=== PATIENT | male | born 1975 | race Caucasian/White ===

== ENCOUNTER 2020-07-30 16:48 | Emergency (ER) | payer OTHER, SELFPAY ==
--- NOTE | ~2020-07-30 | XR_ITS ---
EXAMINATION: XR ANKLE, RIGHT CLINICAL INFORMATION: Pain after fall COMPARISON: None TECHNIQUE: AP, lateral, and mortise views of the right ankle. FINDINGS: The bones and soft tissues are normal. No fracture. Alignment is anatomic. Joint spaces are maintained. No joint effusion. XR/XR ankle RT min 3V IMPRESSION: No acute osseous abnormality of the right ankle.
[2020-07-30 18:51] VITALS: PULSE 79; RESP 16; TEMP 36.8; O2SAT 97; BMI 27.8
--- NOTE | 2020-07-30 18:59 | ED.LOWEXIN ---
HPI - Extremity Injury (Lower) General Chief Complaint: Extremity Injury, Lower Stated Complaint: rt ankle pain Source: patient Mode of arrival: ambulatory Limitations: no limitations History of Present Illness HPI Narrative: 45-year-old male with no significant past medical history presents with complaint of right ankle pain. Stated that he twisted his ankle on and noted some pain and swelling, he thought that the pain would alleviate with ice and elevation however the pain persists. He is able to ambulate but ambulates with a limp. He does not describe any other did injuries and has no other complaints. MD complaint: ankle injury Onset (ago): day(s) (5) Injury: Right: ankle Type of Injury: inversion Place: street/outdoors Severity: moderate Severity scale (1-10): 5 Relieving factors: NSAID, cold therapy and rest Exacerbating factors: weight bearing, movement and palpation Associated symptoms: swelling and ambulatory Other symptoms: none Treatments prior to arrival: cold therapy and NSAIDS Related Data Allergies Allergy/AdvReac Type Severity Reaction Status Date / Time morphine Allergy Unknown Verified 05/23/15 00:00 Review of Systems Review of Systems: Constitutional: No Fever, No Chills ENT/Mouth: No Ear Pain, No Hoarseness, No sore throat Eyes: No Eye Pain, No Swelling, No Redness, No Foreign Body Cardiovascular: No Chest Pain, No SOB Respiratory: No Cough, No Dyspnea Gastrointestinal: No Nausea, No Vomiting, No Diarrhea, No abdominal Pain Genitourinary: No Dysuria, No Hematuria Musculoskeletal: positive right ankle pain, No Myalgias, No Joint Swelling Skin: No Skin lacerations, No rash Neuro: No Weakness, No Numbness, No Paresthesias, No Loss of Consciousness, No Dizziness, No Headache Psych: No Anxiety/Panic, No Depression Heme/Lymph: no easy bruising, no Lymphadenopathy Endocrine: No Polyuria, No Polydipsia Yes all other systems are reviewed and are negative [facility] Past Medical History Attestation statement: The following information was validated with the patient. Source: old records reviewed Social History Social History Smoking Status: Light tobacco smoker Smoked in Last 30 Days: No Use of substances other than those prescribed or required for medical reasons: No Any prior treatment program specific to substance use: No Advance Directives: No Advance Directives Information Provided: Yes Physical Exam Vital Signs: Vital Signs: Last Vital Signs Temp 98.2 F 07/30/20 18:51 Pulse 79 07/30/20 18:51 Resp 16 07/30/20 18:51 Pulse Ox 97 07/30/20 18:51 Body Mass Index 27.8 Appearance: Alert. Oriented X3. No acute distress. Eyes: Pupils equal, round and reactive to light. ENT: Pharynx normal. Neck: Normal inspection. Neck supple. CVS: Normal heart rate and rhythm. Pulses normal. Respiratory: No respiratory distress. Breath sounds normal. Abdomen: Soft and nontender. Skin: Skin warm and dry. Normal skin color. Normal skin turgor. Extremities: Full range of motion to extremities, able to flex extend internal external rotate however tender on motion. Tender to medial malleolar process. No bruising or swelling noted. Neuro: No motor deficit. No sensory deficit. Course Course Course Narrative: 45-year-old male presents with ankle pain after a twisting injury on . Plan of care is for x-rays. 8:09 p.m. x-rays are negative for acute findings. Plan of care is for Harvey wrap and crutches for sprain. Patient verbalized understanding of and agrees to plan of care discharge home. MDM - Extremity Injury (Lower) Differential Diagnosis Differential diagnosis: Likely ankle sprain and strain Imaging Data Right ankle x-ray: Attestation: I personally reviewed and interpreted this imaging study as follows: Radiologist's impression: EXAMINATION: XR ANKLE, RIGHT CLINICAL INFORMATION: Pain after fall COMPARISON: None TECHNIQUE: AP, lateral, and mortise views of the right ankle. FINDINGS: The bones and soft tissues are normal. No fracture. Alignment is anatomic. Joint spaces are maintained. No joint effusion. XR/XR ankle RT min 3V IMPRESSION: No acute osseous abnormality of the right ankle. Discharge Plan Discharge Clinical Impression: Ankle sprain and strain Patient Disposition: Home, Self-Care Instructions: Ankle Sprain (ED) Additional Instructions: You were evaluated for right ankle pain. X-rays are negative for acute findings or fractures. It is highly suspicious that you have an ankle sprain. Use Harvey wrap as needed for pain management and to reduce swelling. Please use Tylenol Motrin as needed for pain management. Consider following up with the primary care physician in several days if pain does not subside with rest, ice elevation Tylenol and Motrin therapy. Thank you for choosing this emergency department for evaluation. Please follow-up with primary care physician as needed. Return to the emergency department for any new, concerning, or worsening symptoms. Stand Alone Forms: Work/School Release Interventions: ED Discharge Assessment Last Done: 07/30/20 20:19 Discharge Date/Time: 07/30/20 20:20
== END 2020-07-30 20:20 | disposition home or self-care (01) ==
PROVIDERS: Emergency Provider Emergency Medicine Emergency Medical Services
DX: S93.401A Sprain of unspecified ligament of right ankle, initial encounter (principal); S96.911A Strain of unspecified muscle and tendon at ankle and foot level, right foot, initial encounter; X50.1XXA Overexertion from prolonged static or awkward postures, initial encounter; Y93.01 Activity, walking, marching and hiking; Y92.480 Sidewalk as the place of occurrence of the external cause; Y99.9 Unspecified external cause status; F17.210 Nicotine dependence, cigarettes, uncomplicated
CPT/HCPCS: 73610; 99283; 99284

== ENCOUNTER 2021-04-14 18:57 | Observation (INO) | payer OTHER, SELFPAY ==
[2021-04-14 19:01] VITALS: BP 127/83; PULSE 80; RESP 18; TEMP 36.8; O2SAT 99; BMI 27.0
--- NOTE | 2021-04-14 20:25 | ED_ITS ---
HPI - Extremity Injury (Lower) General Chief Complaint: Extremity Injury, Lower Stated Complaint: right foot swelling Time Seen by Provider: 04/14/21 20:24 Source: patient Mode of arrival: ambulatory Limitations: no limitations History of Present Illness HPI Narrative: Patient is a 45 year old male presenting to the emergency department today with right foot pain and swelling. Patient states that 2 days ago he was scratched and bit by a kitten, on the foot. Patient states initially, he thought it was getting better however, now his foot is so swollen he can not fit it into his shoes. Patient denies any dizziness, lightheadedness, abdominal pain, nausea, vomiting, fever, chills, blurry vision, double vision, loss of vision, chest pain, difficulty breathing, shortness of breath, back pain, night sweats, pain with urination, increased urinary frequency, increased urinary urgency, blood in his urine or stool, syncope or a near syncopal episode, recent trauma or falls, bowel incontinence, bladder incontinence, bowel retention, bladder retention, or any other complaints at this time. MD complaint: foot injury Onset (ago): day(s) Injury: Right: foot Type of Injury: puncture wound Place: home Severity: mild Severity scale (1-10): 4 Relieving factors: nothing Exacerbating factors: nothing Context: other (Bitten scratch by kitten) Other symptoms: none Related Data Home Medications Medication Instructions Recorded Confirmed No Known Home Meds 04/14/21 04/14/21 Allergies Allergy/AdvReac Type Severity Reaction Status Date / Time morphine Allergy Intermediate Confusion Verified 04/14/21 19:01 Review of Systems Verdana 4l Constitutional: Verdana 4d Verdana 4d Constitutional: Verdana 4d Reports no additional constitutional complaints, Denies chills, Denies fever(s) and Denies night sweats Verdana 4l Eyes: Verdana 4d Verdana 4d Eyes: Verdana 4d Reports no additional eye complaints, Denies blurry vision, Denies change in vision, Denies diplopia, Denies eye discharge, Denies loss of vision and Denies eye pain Verdana 4l ENT: Verdana 4d Denies dizziness Verdana 4l Cardiovascular: Verdana 4d Verdana 4d Cardiovascular: Verdana 4d Reports no additional cardiovascular complaints, Denies chest pain, Denies lightheadedness, Denies Loss of Consciousness and Denies dyspnea Verdana 4l Respiratory: Verdana 4d Verdana 4d Respiratory: Verdana 4d Reports no additional respiratory complaints and Denies dyspnea Verdana 4l Gastrointestinal: Verdana 4d Verdana 4d Gastrointestinal: Verdana 4d Reports no additional gastrointestinal complaints, Denies abdominal pain, Denies melena, Denies hematochezia, Denies change in bowel habits and Denies change in stool character Verdana 4l Genitourinary: Verdana 4d Verdana 4d Genitourinary: Verdana 4d Reports no additional male genitourinary complaints, Denies hematuria, Denies oliguria, Denies difficulty urinating, Denies dysuria, Denies urinary frequency, Denies urinary hesitancy, Denies urinary incontinenceincontinence and Denies urinary urgency Musculoskeletal: Musculoskeletal: Reports no additional musculoskeletal complaints, Denies numbness and Denies tingling Integumentary/Breasts: Comments: Puncture wound to the right ankle with surrounding warmth and erythema Neurologic: Denies dizziness, Denies loss of vision, Denies numbness and Denies tingling Psychiatric: Psychiatric: Reports no additional psychiatric complaints Endocrine: Endocrine: Reports no additional endocrine complaints Hematologic/Lymphatic: Hematologic/Lymphatic: Reports no additional hematologic/lymphatic complaints Allergic/Immunologic: Allergic/Immunologic: Reports no additional allergic/immunologic complaints [facility] Past Medical History Attestation statement: The following information was validated with the patient. Source: old records reviewed Social History Social History Alcohol intake: unknown Patient Tobacco Use Status: Current everyday Tobacco user Use of substances other than those prescribed or required for medical reasons: No Advance Directives: No Advance Directives Information Provided: No Physical Exam Verdana 4l Vital Signs: Verdana 4d Verdana 4d Vital Signs: Verdana 4d Verdana 4Bd Last Vital Signs Verdana 4d [employer] New 4d [employer] New 4d Temp 98.3 F 04/14/21 19:01 [employer] New 4d Pulse 80 04/14/21 22:00 [employer] New 4d Resp 14 04/14/21 22:00 BP 110/78 04/14/21 22:00 Pulse Ox 99 04/14/21 22:00 BMI result Body Mass Index 27.0 Const: General: cooperative, no acute distress, alert and awake Nutritional Appearance: well nourished Orientation/consciousness: patient oriented x3 Limitations: no limitations HENMT: Head: Yes normal to inspection and Yes atraumatic Ears: hearing grossly normal bilaterally and external ears normal General nose exam: Normal external nose present, no nasal discharge noted and no epistaxis Face and sin us: Yes normal facial exam, No abrasion and No laceration Mouth: Normal oral and palatal mucosa present, no drooling and no muffled voice Eyes: General: appearance normal, both eyes and all related structures Periorbital: periorbital findings normal Eyelids: Yes eyelids normal Conjunctivae: conjunctivae normal Pupils: Equal, round and reactive pupils present EOM: EOMs intact bilaterally Neck: Neck: Yes normal visual inspection, Yes full ROM and Yes no lymphadenopathy Chest: Chest palpation & inspection: normal inspection of the chest Resp: Effort & Inspection: normal respiratory effort and able to speak in complete sentences Auscultation: clear to auscultation bilaterally Cardio: Rate: regular rate Rhythm: regular rhythm GI: Inspection: Yes normal to inspection Skin: Trauma: puncture (To the right ankle, see picture in extremity section below) Neuro: General: patient oriented x3 and moves all extremities Cranial nerves: Yes Equal, round and reactive pupils present Cognition (Neuro): normal cognition Motor exam (neuro): 5/5 motor strength present throughout Sensory Exam: Normal double simultaneous stimulation for sensation Coordination: [id number] test normal Extrem: Other: General: Yes full ROM and Yes capillary refill normal Right lower extremity: full ROM, normal capillary refill and ankle Details: swelling Details: diffusely and warmth Location: diffusely Psych: Appearance: grossly normal Mental Status: mental status grossly normal Affect: normal affect Attitude: cooperative Thought process: Normal thought process present Thought content: Normal thought content present Insight: Good insight present (Psych) MDM - Extremity Injury (Lower) MDM Narrative Medical decision making narrative: Patient is a 45 year old male presenting to the emergency department today with right ankle pain and swelling. Patient's physical exam showed an obvious cellulitis to the right ankle, with erythema, warmth, and significant swelling. Patient's blood work was unremarkable. I explained my physical exam findings as well as all test results to the patient. I answered all questions asked by the patient. Patient received IV vancomycin and Zosyn while in the emergency department. I spoke to the orthopedic PA irrigation flume layer, to make her aware of this patient if consult is needed. I spoke to Dr. Edge who agreed to hospital admission. Patient verbalized agreement and understanding with this treatment plan and admission. Differential Diagnosis Differential diagnosis: Likely puncture wound of foot (Right ankle cellulitis, right foot cellulitis) Medical Records Attestation: I reviewed the patient's medical records. Lab Data Attestation: I reviewed the patient's lab results. Result diagrams: 04/14/21 21:02 04/14/21 21: Labs: Lab Results 04/14/21 04/14/21 04/14/21 Range/Units 21:02 21:02 21: WBC 10.6 (4.8-10.8) X10*3/uL RBC 4.99 (4.60-5.80) X10*6/uL Hgb 15.9 (14.0-18.0) g/dl Hct 46.6 (42.0-52.0) % MCV 93.4 (80.0-98.0) fL MCH 31.9 (27.0-33.0) pg MCHC 34.1 (31.0-36.0) g/dl RDW 12.8 (11.0-16.0) % Plt Count 178 (160-400) X10*3/uL MPV 9.3 L (9.4-12.4) fL Immature Gran % (Auto) 0.3 (0.0-0.4) % Neut % (Auto) 69.0 (45-73) % Lymph % (Auto) 22.4 (20-40) % [place] % (Auto) 5.8 (2-11) % Eos % (Auto) 1.8 (0-4) % Baso % (Auto) 0.7 (0-2) % Lymph # (Auto) 2.4 (1.2-4.9) X10*3/uL [place] # (Auto) 0.6 (0.1-1.2) X10*3/uL Eos # (Auto) 0.2 (0.0-0.4) X10*3/uL Baso # (Auto) 0.1 (0.0-0.2) X10*3/uL Abs Immat Gran (auto) 0.03 (0.00-0.03) X10*3/uL Absolute Neuts (auto) 7.3 (2.0-8.3) x10*3/uL Absolute Nucleated RBC 0.000 (0.0-0.012) X10*3/uL Nucleated RBC % (auto) 0.0 (0.0-0.2) /100WBC PT (9.9-13.0) SEC INR (0.9-1.1) APTT (24.1-38.0) SEC Sodium 140 (135-145) mmol/L Potassium 4.3 (3.3-5.1) mmol/L Chloride 102 (96-108) mmol/L Carbon Dioxide 29 (22-29) mmol/L Anion Gap 13 (12-20) BUN 11 (9-16) mg/dL Creatinine 0.83 (0.5-1.4) mg/dL Estim Creat Clear Calc 109.8 Estimated GFR > 60 Fasting Glucose 96 (60-99) mg/dL Lactic Acid 1.4 (0.5-2.0) mmol/L Calcium 9.6 (8.4-10.2) mg/dL Magnesium 2.2 (1.6-2.6) mg/dL Total Bilirubin 0.3 (0.0-1.0) mg/dL AST 18 (5-37) U/L ALT 13 (0-40) U/L Alkaline Phosphatase 102 (39-117) U/L Total Protein 7.6 (6.5-8.0) g/dL Albumin 3.9 (3.5-5.0) g/dL COVID-19 (JUSTIN) (Negative) COVID-19 Clin Com 04/14/21 04/14/21 Range/Units 21:02 21:03 WBC (4.8-10.8) X10*3/uL RBC (4.60-5.80) X10*6/uL Hgb (14.0-18.0) g/dl Hct (42.0-52.0) % MCV (80.0-98.0) fL MCH (27.0-33.0) pg MCHC (31.0-36.0) g/dl RDW (11.0-16.0) % Plt Count (160-400) X10*3/uL MPV (9.4-12.4) fL Immature Gran % (Auto) (0.0-0.4) % Neut % (Auto) (45-73) % Lymph % (Auto) (20-40) % [place] % (Auto) (2-11) % Eos % (Auto) (0-4) % Baso % (Auto) (0-2) % Lymph # (Auto) (1.2-4.9) X10*3/uL [place] # (Auto) (0.1-1.2) X10*3/uL Eos # (Auto) (0.0-0.4) X10*3/uL Baso # (Auto) (0.0-0.2) X10*3/uL Abs Immat Gran (auto) (0.00-0.03) X10*3/uL Absolute Neuts (auto) (2.0-8.3) x10*3/uL Absolute Nucleated RBC (0.0-0.012) X10*3/uL Nucleated RBC % (auto) (0.0-0.2) /100WBC PT 11.0 (9.9-13.0) SEC INR 1.0 (0.9-1.1) APTT 34.1 (24.1-38.0) SEC Sodium (135-145) mmol/L Potassium (3.3-5.1) mmol/L Chloride (96-108) mmol/L Carbon Dioxide (22-29) mmol/L Anion Gap (12-20) BUN (9-16) mg/dL Creatinine (0.5-1.4) mg/dL Estim Creat Clear Calc Estimated GFR Fasting Glucose (60-99) mg/dL Lactic Acid (0.5-2.0) mmol/L Calcium (8.4-10.2) mg/dL Magnesium (1.6-2.6) mg/dL Total Bilirubin (0.0-1.0) mg/dL AST (5-37) U/L ALT (0-40) U/L Alkaline Phosphatase (39-117) U/L Total Protein (6.5-8.0) g/dL Albumin (3.5-5.0) g/dL COVID-19 (JUSTIN) Negative (Negative) COVID-19 Clin Com See Note Discharge Plan Discharge Clinical Impression: Cellulitis Patient Disposition: Admitted As Inpatient Prescriptions: No Action No Known Home Meds 0RF Print Language: Lao
[2021-04-14] MEDS: Piperacillin Sodium/Tazobactam 3.375 GM in 0.9 % Sodium Chloride 50 ML IV (21:05)
[2021-04-14] MEDS: Nicotine 21 MG PATCH.TD24 TRANSDERMA (21:05)
[2021-04-14] MEDS: vancomycin HCL 1,000 MG in 0.9 % Sodium Chloride 250 ML 270 MG IV (21:05)
[2021-04-14 21:10] LABS: MANUAL DIFF FLAG NO
[2021-04-14 21:11] LABS: Basophils Absolute Auto 0.1 X10*3/uL (0.0-0.2); Basophils Percent Auto 0.7 % (0-2); Eosinophils Absolute Auto 0.2 X10*3/uL (0.0-0.4); Eosinophils Percent Auto 1.8 % (0-4); Hematocrit 46.6 % (42.0-52.0); Hemoglobin 15.9 g/dl (14.0-18.0); Imm Gran Abs Auto 0.03 X10*3/uL (0.00-0.03); Imm Gran Pct Auto 0.3 % (0.0-0.4); Lymphocytes Absolute Auto 2.4 X10*3/uL (1.2-4.9); Lymphocytes Percent Auto 22.4 % (20-40); Mean Corpuscular HGB Conc 34.1 g/dl (31.0-36.0); Mean Corpuscular Hemoglobin 31.9 pg (27.0-33.0); Mean Corpuscular Volume 93.4 fL (80.0-98.0); Mean Platelet Volume 9.3 fL (9.4-12.4); Monocytes Absolute Auto 0.6 X10*3/uL (0.1-1.2); Monocytes Percent Auto 5.8 % (2-11); Neutrophils Absolute Auto 7.3 x10*3/uL (2.0-8.3); Platelet Count 178 X10*3/uL (160-400); Red Blood Count 4.99 X10*6/uL (4.60-5.80); Red Cell Distribution Width 12.8 % (11.0-16.0); White Blood Count 10.6 X10*3/uL (4.8-10.8)
[2021-04-14 21:20] LABS: Lactic Acid 1.4 mmol/L (0.5-2.0); Partial Thromboplastin Time 34.1 SEC (24.1-38.0)
[2021-04-14 21:29] LABS: COVID-19 Test Negative (Negative)
[2021-04-14 21:54] LABS: Alanine Aminotransferase 13 U/L (0-40); Albumin Level 3.9 g/dL (3.5-5.0); Alkaline Phosphatase 102 U/L (39-117); Anion Gap 13 (12-20); Aspartate Amino Transferase 18 U/L (5-37); Bilirubin Total 0.3 mg/dL (0.0-1.0); Blood Urea Nitrogen 11 mg/dL (9-16); Calcium 9.6 mg/dL (8.4-10.2); Carbon Dioxide 29 mmol/L (22-29); Chloride 102 mmol/L (96-108); Creatinine Clr Calc Pharmacy 109.8; Estimated Glomerular Filt Rate > 60; Glucose Fasting 96 mg/dL (60-99); Magnesium 2.2 mg/dL (1.6-2.6); Potassium 4.3 mmol/L (3.3-5.1); Sodium 140 mmol/L (135-145); Total Protein 7.6 g/dL (6.5-8.0)
[2021-04-14 22:00] VITALS: BP 110/78; PULSE 80; RESP 14; O2SAT 99
--- NOTE | 2021-04-15 00:07 | P.HPHOSP_ITS ---
History of Present Illness Date of Service: 04/14/21 Chief Complaint: cat scratch/bite This is a 45-year-old male with no significant past medical history who presents to the hospital after his cat scratch/bed him. He reports he developed significant redness as well as pain in his right foot. He denies having any swelling in his legs, no fever or chills. He denies having any chest pain, no shortness of breath, no abdominal pain nausea or vomiting, no diarrhea constipation, no urinary symptoms . No headache or change in vision. On arrival to the ED patient hemodynamically stable no significant abnormal vitals. Labs are significant for WBC count of 10.2, otherwise unremarkable. Patient given Zosyn as well as vanco and admitted for further management. Review of Systems Verdana 4l Review of Systems: Yes all other systems are reviewed and Verdana 4d are negative [facility] Medical History (Updated 04/15/21 @ 06:24 by [place] Edge MD) No pertinent past medical history Family History (Updated 04/15/21 @ 06:24 by [place] Edge MD) Other No family history of coronary artery disease Surgical History (Updated 04/15/21 @ 06:24 by [place] Edge MD) No pertinent past surgical history Social History Alcohol intake: unknown Patient Tobacco Use Status: Current everyday Tobacco user Use of substances other than those prescribed or required for medical reasons: No Advance Directives: No Advance Directives Information Provided: No Meds Allergies Allergy/AdvReac Type Severity Reaction Status Date / Time morphine Allergy Intermediate Confusion Verified 04/14/21 19:01 Active Medications: Current Medications Acetaminophen (Acetaminophen 325 Mg Tablet) 650 mg PO Q6H PRN PRN Reason: Pain, Mild (Pain Scale 1-3) Docusate Sodium (Docusate Sodium 100 Mg Capsule) 100 mg PO DAILY PRN PRN Reason: Constipation Piperacillin Sod/Tazobactam (Sod 3.375 gm/ Sodium Chloride) 50 mls @ 100 mls/hr IV Q6H AJ Ondansetron HCl (Ondansetron Hcl 4 Mg/2 Ml Vial) 4 mg IVPUSH Q8H PRN PRN Reason: Nausea and Vomiting Oxycodone HCl (Oxycodone Hcl Immed Release 5 Mg Tablet) 5 mg PO Q6H PRN PRN Reason: Pain, Severe (Pain Scale 7-10) Pharmacy Consult (Consult Rx Perform Med Rec) 1 each MISCELLANE ONCE PRN PRN Reason: Consult order Sodium Chloride (0.9 % Sodium Chloride Flush 3 Ml Syringe) 3 ml IVFLUSH QSHIFT [facility] Home Medications Medication Instructions Recorded Confirmed Last Taken Type No Known Home Meds 04/14/21 04/14/21 Unknown History Physical Exam Verdana 4l Vital Signs and Narrative: Verdana 4d Verdana 4d Vital Signs: Verdana 4d Verdana 4Bd Last Vital Signs Verdana 4d [employer] New 4d [employer] Operator New 4d Temp 98.3 F 04/14/21 19:01 [employer] New 4d Pulse 80 04/14/21 22:00 Rapid [employer] Operator New 4d Resp 14 04/14/21 22:00 BP 110/78 04/14/21 22:00 Pulse Ox 99 04/14/21 22:00 BMI result Body Mass Index 27.0 Const: General: cooperative and no acute distress Orientation/consciousness: patient oriented x3 Eyes: General: appearance normal, both eyes and all related structures Pupils: Equal, round and reactive pupils present Resp: Effort & Inspection: normal respiratory effort, able to speak in complete sentences and abnormal respiratory pattern Auscultation: clear to auscultation bilaterally Cardio: Rate: regular rate Rhythm: regular rhythm GI: Palpation (GI): Soft to palpation Auscultation: normal bowel sounds Skin: General skin exam: no rashes or lesions noted Neuro: General: patient oriented x3 Cranial nerves: Yes Equal, round and reactive pupils present Cognition (Neuro): normal cognition Extrem: Other: right foot to mid [place] erythema, tenderness, warmth and mild edema Results Labs CBC and Chem 7: 04/15/21 05:30 04/15/21 05:30 Labs: Laboratory Results - last 24 hr 04/14/21 04/14/21 04/14/21 21:02 21:02 21:02 MCV 93.4 MCH 31.9 MCHC 34.1 RDW 12.8 Plt Count 178 MPV 9.3 L Immature Gran % (Auto) 0.3 Neut % (Auto) 69.0 Lymph % (Auto) 22.4 [place] % (Auto) 5.8 Eos % (Auto) 1.8 Baso % (Auto) 0.7 Lymph # (Auto) 2.4 [place] # (Auto) 0.6 Eos # (Auto) 0.2 Baso # (Auto) 0.1 Abs Immat Gran (auto) 0.03 Absolute Neuts (auto) 7.3 Absolute Nucleated RBC 0.000 Nucleated RBC % (auto) 0.0 PT INR APTT Anion Gap 13 Estim Creat Clear Calc 109.8 Estimated GFR > 60 Fasting Glucose 96 Lactic Acid 1.4 Calcium 9.6 Magnesium 2.2 Total Bilirubin 0.3 AST 18 ALT 13 Alkaline Phosphatase 102 Total Protein 7.6 Albumin 3.9 COVID-19 (JUSTIN) COVID-19 [facility] Com 04/14/21 04/14/21 21:02 21:03 MCV MCH MCHC RDW Plt Count MPV Immature Gran % (Auto) Neut % (Auto) Lymph % (Auto) [place] % (Auto) Eos % (Auto) Baso % (Auto) Lymph # (Auto) [place] # (Auto) Eos # (Auto) Baso # (Auto) Abs Immat Gran (auto) Absolute Neuts (auto) Absolute Nucleated RBC Nucleated RBC % (auto) PT 11.0 INR 1.0 APTT 34.1 Anion Gap Estim Creat Clear Calc Estimated GFR Fasting Glucose Lactic Acid Calcium Magnesium Total Bilirubin AST ALT Alkaline Phosphatase Total Protein Albumin COVID-19 (JUSTIN) Negative COVID-19 Clin Com See Note Assessment and Plan (1) Cellulitis: Status: Acute (2) Cat scratch: Status: Acute Plan 45-year-old male with no significant past medical history who presents to the hospital with complaints of a cat scratch found to have cellulitis # right lower extremity cellulitis - secondary to cat scratch - hemodynamically stable - will start him on Zosyn - if stable for the next 24 hours can switch to p.o. medication and be discharged home DVT prophylaxis: Early ambulation Quality Stroke Does the patient have a stroke diagnosis?: No VTE Prior VTE?: No VTE Risk Level:: Medical - moderate - high VTE Device Contraindication: Treatment Not Indicated VTE Drug Contraindication: Treatment Not Indicated
[2021-04-15 00:55] VITALS: BP 102/43; PULSE 66; RESP 56; TEMP 36.7; O2SAT 95
[2021-04-15] MEDS: Piperacillin Sodium/Tazobactam 3.375 GM in 0.9 % Sodium Chloride 50 ML IV ×2 (03:03→09:42)
[2021-04-15 05:46] LABS: MANUAL DIFF FLAG NO
[2021-04-15 05:52] LABS: Basophils Absolute Auto 0.1 X10*3/uL (0.0-0.2); Basophils Percent Auto 0.5 % (0-2); Eosinophils Absolute Auto 0.2 X10*3/uL (0.0-0.4); Eosinophils Percent Auto 2.2 % (0-4); Hematocrit 47.7 % (42.0-52.0); Hemoglobin 15.9 g/dl (14.0-18.0); Imm Gran Abs Auto 0.03 X10*3/uL (0.00-0.03); Imm Gran Pct Auto 0.3 % (0.0-0.4); Lymphocytes Absolute Auto 2.4 X10*3/uL (1.2-4.9); Lymphocytes Percent Auto 23.8 % (20-40); Mean Corpuscular HGB Conc 33.3 g/dl (31.0-36.0); Mean Corpuscular Hemoglobin 31.4 pg (27.0-33.0); Mean Corpuscular Volume 94.3 fL (80.0-98.0); Mean Platelet Volume 9.6 fL (9.4-12.4); Monocytes Absolute Auto 0.6 X10*3/uL (0.1-1.2); Monocytes Percent Auto 6.2 % (2-11); Neutrophils Absolute Auto 6.9 x10*3/uL (2.0-8.3); Platelet Count 156 X10*3/uL (160-400); Red Blood Count 5.06 X10*6/uL (4.60-5.80); Red Cell Distribution Width 12.8 % (11.0-16.0); White Blood Count 10.2 X10*3/uL (4.8-10.8)
[2021-04-15 06:05] LABS: Anion Gap 11 (12-20); Blood Urea Nitrogen 10 mg/dL (9-16); Calcium 9.1 mg/dL (8.4-10.2); Carbon Dioxide 27 mmol/L (22-29); Chloride 106 mmol/L (96-108); Creatinine Clr Calc Pharmacy 108.5; Estimated Glomerular Filt Rate > 60; Glucose Random 101 mg/dL (60-115); Potassium 5.1 mmol/L (3.3-5.1); Sodium 139 mmol/L (135-145)
[2021-04-15 06:20] VITALS: BP 105/71; PULSE 80; RESP 16; TEMP 37; O2SAT 100
--- NOTE | 2021-04-15 07:11 | PHA.MEDREC ---
Pharmacy Consult ? Medication Reconciliation Pharmacy has reviewed the medication reconciliation completed by Teena. Kailey Amanda, LauraD
--- NOTE | 2021-04-15 09:56 | P.DS_ITS ---
DS: Providers Provider Date of Service: 04/15/21 Date of admission: 04/14/21 23:53 Primary care physician: None Physician DS: Diagnosis Discharge Diagnosis (1) Cellulitis: Status: Acute (2) Cat scratch: Status: Acute DS: Summary Hospital Course Hospital Course: Chief Complaint: cat scratch/bite This is a 45-year-old male with no significant past medical history who presents to the hospital after his cat scratch/bed him.? He reports he developed significant redness as well as pain in his right foot.? He denies having any swelling in his legs, no fever or chills.? He denies having any chest pain, no shortness of breath, no abdominal pain nausea or vomiting, no diarrhea constipation, no urinary symptoms .? No headache or change in vision.? On arrival to the ED patient hemodynamically stable no significant abnormal vi tals. Labs are significant for WBC count of 10.2, otherwise unremarkable. Patient given Zosyn as well as vanco and admitted for further management. hospital course 45-year-old gentleman with no significant past medical history presented to [facility] due to significant swelling, redness and throbbing pain of right foot, after being scratched by his kittens, in the emergency room patient noted to be hemodynamically significant with normal white cells WBC was 10.2 patient treated with IV Zosyn, patient noted to have significant improvement in his symptoms, swelling and pain has resolved continue to have persistent mild redness patient is eager to be discharged home since he is hemodynamically stable with normal vitals will discharge him on by mouth Augmentin for 7 days recommended to return to check with any fever chills or worsening redness or swelling. Time Spent with Patient Time attestation: Total time spent providing and/or coordinating discharge services: Discharge coordination time: Greater than 30 minutes Quality: Stroke Does the patient have a stroke diagnosis?: No Physical Exam Verdana 4l Vital Signs: Verdana 4d Verdana 4d Vital Signs: Verdana 4d Verdana 4Bd Last Vital Signs Verdana 4d Sandwich Peddler New 4d Sandwich Peddler New 4d Temp 98.6 F 04/15/21 06:20 Sandwich Peddler New 4d Pulse 80 04/15/21 06:20 Sandwich Peddler New 4d Resp 16 04/15/21 06:20 BP 105/71 04/15/21 06:20 Pulse Ox 100 04/15/21 06:20 BMI result Body Mass Index 27.0 Const: Other: General Awake alert, no acute distress. Necksupple no JVD. CVS regular rate rhythm, Respiratory lungs clear to auscultation, no respiratory distress, no wheeze, no rhonchi. Gastrointestinal abdomen soft, nontender, bowel sounds audible Extremities no edema left leg, right leg localized redness around ankle, no tenderness to palpation no fluctuation. no open wounds. Neuro nonfocal patient moving all 4 extremity speech clear. Skin no rash DS: Data Data Completed and Pending Labs on day of discharge: Laboratory Results - last 24 hr 04/14/21 04/14/21 04/14/21 21:02 21:02 21:02 WBC 10.6 RBC 4.99 Hgb 15.9 Hct 46.6 MCV 93.4 MCH 31.9 MCHC 34.1 RDW 12.8 Plt Count 178 MPV 9.3 L Immature Gran % (Auto) 0.3 Neut % (Auto) 69.0 Lymph % (Auto) 22.4 Haralson % (Auto) 5.8 Eos % (Auto) 1.8 Baso % (Auto) 0.7 Lymph # (Auto) 2.4 Haralson # (Auto) 0.6 Eos # (Auto) 0.2 Baso # (Auto) 0.1 Abs Immat Gran (auto) 0.03 Absolute Neuts (auto) 7.3 Absolute Nucleated RBC 0.000 Nucleated RBC % (auto) 0.0 PT INR APTT Sodium 140 Potassium 4.3 Chloride 102 Carbon Dioxide 29 Anion Gap 13 BUN 11 Creatinine 0.83 Estim Creat Clear Calc 109.8 Estimated GFR > 60 Random Glucose Fasting Glucose 96 Lactic Acid 1.4 Calcium 9.6 Magnesium 2.2 Total Bilirubin 0.3 AST 18 ALT 13 Alkaline Phosphatase 102 Total Protein 7.6 Albumin 3.9 COVID-19 (JUSTIN) COVID-19 Clin Com 04/14/21 04/14/21 04/15/21 21:02 21:03 05:30 WBC 10.2 RBC 5.06 Hgb 15.9 Hct 47.7 MCV 94.3 MCH 31.4 MCHC 33.3 RDW 12.8 Plt Count 156 L MPV 9.6 Immature Gran % (Auto) 0.3 Neut % (Auto) 67.0 Lymph % (Auto) 23.8 Haralson % (Auto) 6.2 Eos % (Auto) 2.2 Baso % (Auto) 0.5 Lymph # (Auto) 2.4 Haralson # (Auto) 0.6 Eos # (Auto) 0.2 Baso # (Auto) 0.1 Abs Immat Gran (auto) 0.03 Absolute Neuts (auto) 6.9 Absolute Nucleated RBC 0.000 Nucleated RBC % (auto) 0.0 PT 11.0 INR 1.0 APTT 34.1 Sodium Potassium Chloride Carbon Dioxide Anion Gap BUN Creatinine Estim Creat Clear Calc Estimated GFR Random Glucose Fasting Glucose Lactic Acid Calcium Magnesium Total Bilirubin AST ALT Alkaline Phosphatase Total Protein Albumin COVID-19 (JUSTIN) Negative COVID-19 Clin Com See Note 04/15/21 05:30 WBC RBC Hgb Hct MCV MCH MCHC RDW Plt Count MPV Immature Gran % (Auto) Neut % (Auto) Lymph % (Auto) Haralson % (Auto) Eos % (Auto) Baso % (Auto) Lymph # (Auto) Haralson # (Auto) Eos # (Auto) Baso # (Auto) Abs Immat Gran (auto) Absolute Neuts (auto) Absolute Nucleated RBC Nucleated RBC % (auto) PT INR APTT Sodium 139 Potassium 5.1 Chloride 106 Carbon Dioxide 27 Anion Gap 11 L BUN 10 Creatinine 0.84 Estim Creat Clear Calc 108.5 Estimated GFR > 60 Random Glucose 101 Fasting Glucose Lactic Acid Calcium 9.1 Magnesium Total Bilirubin AST ALT Alkaline Phosphatase Total Protein Albumin COVID-19 (JSUTIN) COVID-19 Clin Com Discharge Plan Discharge Patient Disposition: Home, Self-Care Discharge Diagnosis: right foot cellulitis due to cat bite Referrals: Physician,None [Primary Care Provider] - 1 Week Discharge Medications: New amoxicillin-pot clavulanate [Augmentin] 875-125 mg tablet 1 tab PO BID Qty: 14 0RF Discharge Orders: Discharge Order (Routine); Ordered 04/15/21 Ordered By: Patrick Fortune Diet: advance to usual diet Activity on Discharge: As tolerated Stand Alone Forms: Patient Portal Discharge page Print Language: Khmer Care Plan Goals: right foot cellulitis keep leg elevated take antibiotic Augmentin twice daily for 7 days, return to check with worsening redness swelling recurrent fevers or chills. Health Concerns: tobacco use disorder strongly recommend to abstain from smoking Plan of Treatment: follow-up with PCP in 7-10 days Assessment: Per discharge summary
--- NOTE | 2021-04-15 10:42 | PC.NURSE ---
Pt A&Ox3, LCA, no pain at this time, R foot swollen and red, no drainage at this time. MD at bedside, pt would like to be DC'd due to end of month at work. MD agreeable to home PO antibiotics. Plan for zosyn and DC.
== END 2021-04-15 11:56 | disposition home or self-care (01) ==
LOC: HO.ED 23:17 → HO.EDOVER 04-15 00:02
PROVIDERS: Physician Assistant Medical; Admitting Provider Internal Medicine; Emergency Provider Internal Medicine; Visit Provider Hospitalist
DX: L03.115 Cellulitis of right lower limb (principal); S91.031A Puncture wound without foreign body, right ankle, initial encounter; W55.01XA Bitten by cat, initial encounter; S90.811A Abrasion, right foot, initial encounter; W55.03XA Scratched by cat, initial encounter; Y93.9 Activity, unspecified; Y92.009 Unspecified place in unspecified non-institutional (private) residence as the place of occurrence of the external cause; Y99.8 Other external cause status; F17.210 Nicotine dependence, cigarettes, uncomplicated; Z20.822 Contact with and (suspected) exposure to COVID-19; Z88.6 Allergy status to analgesic agent; Z79.899 Other long term (current) drug therapy
CPT/HCPCS: 36415; 80048; 80053; 83605; 83735; 85025; 85610; 85730; 87040; 87635; 96365; 96366; 96375; 99218; 99285; J2543; J3370

== ENCOUNTER 2022-01-01 09:01 | Emergency (ER) | payer OTHER, SELFPAY ==
--- NOTE | ~2022-01-01 | US_ITS ---
EXAMINATION: ULTRASOUND ARTERIAL DUPLEX UPPER EXTREMITY LEFT CLINICAL INFORMATION: Some cyanosis, rule out occlusion. COMPARISON: None TECHNIQUE: Multiple 2-D grayscale and duplex Doppler ultrasound images of the arteries of the left upper extremity were obtained. FINDINGS: Normal arterial waveforms are seen in the visualized arteries of the left upper extremity with normal direction of flow. Peaks systolic arterial velocities are as follows in centimeters per second: Proximal subclavian: 252 Mid subclavian: 90 Distal subclavian 68 Maxillary: 84 Proximal brachial: 119 Mid brachial: 143 Distal brachial: 117 Radial: 63 Ulnar: 33 US/US arterial duplex UE LT IMPRESSION: No hemodynamically significant stenosis in the visualized arteries of the left upper extremity.
--- NOTE | ~2022-01-01 | XR_ITS ---
EXAMINATION: CR X-RAY HAND AND WRIST LEFT CLINICAL INFORMATION: Thumb sinuses. COMPARISON: None TECHNIQUE: 4 views of the left hand were obtained. An indicator arrow points to the first digit. FINDINGS: No acute fracture or dislocation is seen. The joint spaces are unremarkable. The carpal bones are normally aligned. The distal radius and ulna are intact with the soft tissues are unremarkable. XR/XR hand wrist LT IMPRESSION: Unremarkable examination. Specifically, the first digit is unremarkable.
--- NOTE | ~2022-01-01 | US_ITS ---
EXAMINATION: US VENOUS WITH DOPPLER UPPER EXTREMITY, LEFT CLINICAL INFORMATION: Left upper extremity thumb cyanosis. COMPARISON: None TECHNIQUE: Ultrasound of the upper extremity is performed using compression sonography and color and pulse Doppler flow with assessment of augmentation of flow. There is also imaging and Doppler assessment of the jugular and subclavian veins. Spectral analysis with color-flow imaging is performed. FINDINGS: No evidence for deep venous thrombosis is seen in the left internal jugular, subclavian, axillary, brachial, radial and ulnar veins. Positive superficial thrombus is seen distally in the left basilic vein extending to the left forearm. The left cephalic vein is patent. US/US venous duplex UE LT IMPRESSION: 1. No evidence for deep venous thrombosis in the visualized veins of the left upper extremity. 2. Positive superficial thrombus in the distal left basilic vein extending to the left forearm.
[2022-01-01 10:56] VITALS: BP 145/90; PULSE 91; RESP 20; TEMP 36.7; O2SAT 99; BMI 27.5
--- NOTE | 2022-01-01 11:20 | PC.NURSE ---
pt presents to ED after leaving [facility] where he waited 8 hours to see a provider. left thumb noted to dusky in appearance, sluggish cap refill, cool to the touch at the tip. 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 pt has full ROM, no numbness/tingling. abrasion under nail bed is non penetrating, pt sts this is an abrasion from the initial injury 14 days ago where he reduced his dislocation himself. pt has had compartment syndrome in the past in his leg. Radial pulse palpable.
--- NOTE | 2022-01-01 11:37 | ED_ITS ---
HPI - Extremity Problem General Chief complaint: Extremity Injury, Upper Stated complaint: r thumb issue Time Seen by Provider: 01/01/22 11:17 Source: patient Mode of arrival: ambulatory Limitations: no limitations History of Present Illness HPI Narrative: Patient is a 46-year-old male who reports he is Color-Blind presenting today with left discoloration. He states that 2 weeks ago he with sparring Jiu-Jitsu when he fractured/dislocated his thumb. He reports he then pushed his thumb back into place. He then states that on Thursday he felt a little bit of discomfort. He reports the only reason why he is coming in today is because people keep telling me it looks bad. He currently denies any fevers, chills, loss of sensation, pain, loss of range of motion. Patient denies any blood thinners. Of note patient does report that he has a history of compartment syndrome of the left thigh. Also reports a history of IV drug use although has not used IV drugs in many years. MD Complaint: cold extremity (Left thumb) and other (Left thumb discoloration) Onset (ago): week(s) (2) Location: left and other (thumb) Associated symptoms: denies other symptoms Related Data Previous Rx's Medication Instructions Recorded amoxicillin 875 mg-potassium 1 tab PO BID #14 tabs 04/15/21 clavulanate 125 mg tablet (Augmentin) ibuprofen 800 mg tablet 800 mg PO Q8H PRN pain #14 tabs 01/01/22 Allergies Allergy/AdvReac Type Severity Reaction Status Date / Time morphine Allergy Intermediate Confusion Verified 01/01/22 10:56 Review of Systems Review of Systems: Constitutional : No Fever, No Chills, No Fatigue, No Malaise ENT/Mouth : No Hearing loss, No Ear Pain, No Nasal Congestion, No sore throat, No Rhinorrhea, No Swallowing Difficulty Eyes: No Eye Pain, No Swelling, No Redness, No Discharge, No Vision Changes Cardiovascular : No Chest Pain, No SOB, No Dyspnea on Exertion, No Orthopnea, No Edema, No Palpitations Respiratory : No Cough, No Sputum, No Wheezing, No Smoke Exposure, No Dyspnea Gastrointestinal : No Nausea, No Vomiting, No Diarrhea, No Constipation, No abdominal Pain, Musculoskeletal : No joint pain, No Myalgias, No Joint Swelling, Skin : No Skin Lesions, No rash, + Left thumb discoloration Neuro : No Weakness, No Numbness, No Paresthesias, No Loss of Consciousness, No Dizziness, No Headache Psych : No Anxiety/Panic, No Depression, No SI/HI/AH/VH, No Social Issues, Heme/Lymph: No Bruising, No Bleeding,No Lymphadenopathye Yes all other systems are reviewed and are negative [facility] Past Medical History Attestation statement: The following information was validated with the patient. Source: old records reviewed and nursing notes reviewed Medical History No pertinent past medical history Surgical History No pertinent past surgical history Family History Family History Other No family history of coronary artery disease Social History Social History Alcohol intake: unknown Patient Tobacco Use Status: Current everyday Tobacco user Advance Directives: No Physical Exam Vital Signs: Vital Signs: Last Vital Signs Temp 98.1 F 01/01/22 10:56 Pulse 91 01/01/22 10:56 Resp 20 01/01/22 10:56 BP 145/90 H 01/01/22 10:56 Pulse Ox 99 01/01/22 10:56 O2 Del Method 01/01/22 10:56 BMI result Body Mass Index 27.5 vital signs have been reviewed as normal and appeared to be correct. Blood pressure normal. Heart rate normal. Respiration rate normal. Temperature n ormal. Oxygen saturation normal. Appearance: Alert. Oriented X3. No acute distress. Head: Normal external exam. Normocephalic. Atraumatic. Eyes: PERRLA. EOMI. Conjunctiva and sclera normal. Eyelids normal. ENT: Moist mucous membranes. Normal voice. No trismus noted. No drooling noted. No muffled voice noted. Neck: Normal inspection. No adenopathy noted. No meningeal signs noted. Full range of motion noted. CVS: Normal heart rate and rhythm. Heart sound normal. Pulses normal throughout. No murmurs/rales/gallops. Respiratory: No respiratory distress. Painless inspiration. Breath sounds normal. No wheezes/rales/rhonchi noted. Chest nontender. No accessory muscle usage noted or decreased air movement noted. No signs of trauma. Skin: Discoloration of the left thumb. Small erythematous patch noted at the base of the left thumb, consistent with popped blood vessels. Skin warm and dry. Normal skin color. Normal skin turgor. No rashes/lesions/lacerations noted. Extremities: No lower extremity edema. Extremities exhibit normal range of motion and nontender. Full range of motion of all digits. Neuro: Oriented X 3. No motor deficit. No sensory deficit. Normal steady gait. No focal neuro deficits noted. CN's II-XII intact bilaterally. Resting t remor noted bilateral hands (baseline). ? Vascular: +2 radial pulses/+ 2 distal pedal pulses/+2 dorsalis pedis b/l. Patient has normal cap refill on dorsal aspect of the some although on the volar aspect patient has delayed cap refill. Otherwise normal cap refill for all other extremities/fingers. + cyanosis noted to left thumb. No other cyanosis have upper extremity nails. Course Course Course Narrative: 11:30 -patient is a 46-year-old male with no significant past medical history present ing today for left some discoloration. He has a history of trauma to the left arm 2 weeks ago. Physical exam significant for cyanosis of the left thumb, though radial pulses are intact bilaterally, patient has full range of motion the digit. Plan: - Labs - ultrasound of hand/thumb with Doppler - X-ray of right hand to rule out frx - consult with Dr. Morse (Vascular Surgeon) Dr. Hobbs (hand surgeon) - re-evaluate Reevaluation(s) Reevaluation #1: - labs return in all labs within normal limits. ETOH level negative. - hand and wrist x-ray of left hand negative for any acute processes. - venous duplex ultrasound of left upper extremity negative for deep venous thrombosis although revealed possible superficial thrombus in the distal left basilic vein extending to the left forearm. Otherwise no other acute processes noted. - arterial ultrasound negative for any acute processes. - therefore I discussed this case with Dr. Morse he reported that he would not treat this at this time he would recommend warm compresses with NSAIDs and follow-up with hand surgeon and with himself. Therefore I discussed this with t he patient he understands agrees with the plan. Time: 14:08 MDM - Extremity (Nontraumatic) Medical Records Attestation: I reviewed the patient's medical records. Lab Data Attestation: I reviewed the patient's lab results. Result diagrams: 01/01/22 13:09 01/01/22 13:09 Labs: Lab Results 01/01/22 01/01/22 01/01/22 Range/Units 13:09 13:09 13:09 WBC 7.8 (4.8-10.8) X10*3/uL RBC 5.80 (4.60-5.80) X10*6/uL Hgb 17.4 (14.0-18.0) g/dl Hct 53.1 H (42.0-52.0) % MCV 91.6 (80.0-98.0) fL MCH 30.0 (27.0-33.0) pg MCHC 32.8 (31.0-36.0) g/dl RDW 15.1 (11.0-16.0) % Plt Count 193 (160-400) X10*3/uL MPV 9.1 L (9.4-12.4) fL Immature Gran % (Auto) 0.3 (0.0-0.4) % Neut % (Auto) 62.5 (45-73) % Lymph % (Auto) 26.7 (20-40) % Dawes % (Auto) 6.6 (2-11) % Eos % (Auto) 3.1 (0-4) % Baso % (Auto) 0.8 (0-2) % Lymph # (Auto) 2.1 (1.2-4.9) X10*3/uL Dawes # (Auto) 0.5 (0.1-1.2) X10*3/uL Eos # (Auto) 0.2 (0.0-0.4) X10*3/uL Baso # (Auto) 0.1 (0.0-0.2) X10*3/uL Abs Immat Gran (auto) 0.02 (0.00-0.03) X10*3/uL Absolute Neuts (auto) 4.9 (2.0-8.3) x10*3/uL Absolute Nucleated RBC 0.000 (0.0-0.012) X10*3/uL Nucleated RBC % (auto) 0.0 (0.0-0.2) /100WBC PT 11.7 (10.0-13.1) SEC INR 1.0 (0.9-1.1) Sodium 138 (135-145) mmol/L Potassium 4.5 (3.3-5.1) mmol/L Chloride 105 (96-108) mmol/L Carbon Dioxide 22 (22-29) mmol/L Anion Gap 16 (12-20) BUN 15 (9-16) mg/dL Creatinine 0.78 (0.5-1.4) mg/dL Estim Creat Clear Calc 124.9 Estimated GFR > 60 Random Glucose 91 (60-115) mg/dL Calcium 9.5 (8.4-10.2) mg/dL Magnesium 1.8 (1.6-2.6) mg/dL Total Bilirubin 0.5 (0.0-1.0) mg/dL AST 30 D (5-37) U/L ALT 18 (0-40) U/L Alkaline Phosphatase 70 D (39-117) U/L Total Protein 7.7 (6.5-8.0) g/dL Albumin 4.1 (3.5-5.0) g/dL Ethyl Alcohol < 10 mg/dL Imaging Data Left hand/wrist x-ray: Attestation: I personally reviewed and interpreted this imaging study as follows: Radiologist's impression: FINDINGS: No acute fracture or dislocation is seen. The joint spaces are unremarkable. The carpal bones are normally aligned. The distal radius and ulna are intact with the soft tissues are unremarkable.? XR/XR hand wrist LT IMPRESSION: Unremarkable examination. Specifically, the first digit is unremarkable.? Venous duplex ultrasound of left upper extremity: Attestation: I personally reviewed and interpreted this imaging study as follows: Radiologist's impression: FINDINGS: No evidence for deep venous thrombosis is seen in the left internal jugular, subclavian, axillary, brachial, radial and ulnar veins. Positive superficial thrombus is seen distally in the left basilic vein extending to the left forearm. The left cephalic vein is patent. US/US venous duplex UE LT IMPRESSION: ? 1. No evidence for deep venous thrombosis in the visualized veins of the left upper extremity. 2. Positive superficial thrombus in the distal left basilic vein extending to the left forearm. Duplex scan upper extremity artery: Attestation: I personally reviewed and interpreted this imaging study as follows: Radiologist's impression: FINDINGS: Normal arterial waveforms are seen in the visualized arteries of the left upper extremity with normal direction of flow. Peaks systolic arterial velocities are as follows in centimeters per second: Proximal subclavian: 252 Mid subclavian: 90 Distal subclavian 68 Maxillary: 84 Proximal brachial: 119 Mid brachial: 143 Distal brachial: 117 Radial: 63 Ulnar: 33 US/US arterial duplex UE LT IMPRESSION: No hemodynamically significant stenosis in the visualized arteries of the left upper extremity.? Critical Care Time Critical Care Time Critical Care Time: Yes Total Critical Care Time: 60 Attestation: I personally attest to this time spent taking care of the patient Discharge Plan Discharge Clinical Impression: Superficial venous thrombosis of left upper extremity Patient Disposition: Home, Self-Care Instructions: Superficial Thrombophlebitis (ED) Additional Instructions: You should take ibuprofen 800 mg every 8 hours. You should also follow-up with the hand surgeon/vascular surgeon there number is listed please call them to make a follow-up appointment within the next few weeks. If you have any new or worsening symptoms return immediately. Otherwise apply warm compresses as well. Prescriptions: New ibuprofen 800 mg tablet 800 mg PO Q8H PRN (Reason: pain) Qty: 14 0RF No Action amoxicillin-pot clavulanate [Augmentin] 875-125 mg tablet 1 tab PO BID Qty: 14 0RF Referrals: Keegan Morse MD [Physician] - 1 week Opal Hobbs MD [Physician] - 1 week Stand Alone Forms: Work/School Release
[2022-01-01 13:12] LABS: MANUAL DIFF FLAG NO
[2022-01-01 13:14] LABS: Basophils Absolute Auto 0.1 X10*3/uL (0.0-0.2); Basophils Percent Auto 0.8 % (0-2); Eosinophils Absolute Auto 0.2 X10*3/uL (0.0-0.4); Eosinophils Percent Auto 3.1 % (0-4); Hematocrit 53.1 % (42.0-52.0); Hemoglobin 17.4 g/dl (14.0-18.0); Imm Gran Abs Auto 0.02 X10*3/uL (0.00-0.03); Imm Gran Pct Auto 0.3 % (0.0-0.4); Lymphocytes Absolute Auto 2.1 X10*3/uL (1.2-4.9); Lymphocytes Percent Auto 26.7 % (20-40); Mean Corpuscular HGB Conc 32.8 g/dl (31.0-36.0); Mean Corpuscular Volume 91.6 fL (80.0-98.0); Mean Platelet Volume 9.1 fL (9.4-12.4); Monocytes Absolute Auto 0.5 X10*3/uL (0.1-1.2); Monocytes Percent Auto 6.6 % (2-11); Neutrophils Absolute Auto 4.9 x10*3/uL (2.0-8.3); Neutrophils Percent Auto 62.5 % (45-73); Platelet Count 193 X10*3/uL (160-400); Red Cell Distribution Width 15.1 % (11.0-16.0); White Blood Count 7.8 X10*3/uL (4.8-10.8)
[2022-01-01 13:19] LABS: Prothrombin Time 11.7 SEC (10.0-13.1)
[2022-01-01 13:44] LABS: Alanine Aminotransferase 18 U/L (0-40); Albumin Level 4.1 g/dL (3.5-5.0); Alkaline Phosphatase 70 U/L (39-117); Anion Gap 16 (12-20); Aspartate Amino Transferase 30 U/L (5-37); Bilirubin Total 0.5 mg/dL (0.0-1.0); Blood Urea Nitrogen 15 mg/dL (9-16); Calcium 9.5 mg/dL (8.4-10.2); Carbon Dioxide 22 mmol/L (22-29); Chloride 105 mmol/L (96-108); Creatinine Clr Calc Pharmacy 124.9; Estimated Glomerular Filt Rate > 60; Ethanol < 10 mg/dL; Glucose Random 91 mg/dL (60-115); Magnesium 1.8 mg/dL (1.6-2.6); Potassium 4.5 mmol/L (3.3-5.1); Sodium 138 mmol/L (135-145); Total Protein 7.7 g/dL (6.5-8.0)
== END 2022-01-01 14:38 | disposition home or self-care (01) ==
PROVIDERS: Physician Assistant Medical; Emergency Provider Student in an Organized Health Care Education/Training Program
DX: I82.612 Acute embolism and thrombosis of superficial veins of left upper extremity (principal); R23.0 Cyanosis; M79.644 Pain in right finger(s); F17.200 Nicotine dependence, unspecified, uncomplicated
CPT/HCPCS: 36415; 73110; 73130; 80053; 82077; 83735; 85025; 85610; 93931; 93971; 99282; 99284

== ENCOUNTER 2022-01-13 16:51 | Emergency (ER) | payer OTHER, SELFPAY ==
[2022-01-13 17:40] VITALS: BP 138/76; PULSE 85; RESP 18; TEMP 36.8; O2SAT 97; BMI 28.1
--- NOTE | 2022-01-13 21:38 | ED_ITS ---
HPI - Extremity Problem General Chief complaint: Extremity Injury, Upper Stated complaint: pain in thumb, loss of color Time Seen by Provider: 01/13/22 21:38 Source: patient Mode of arrival: ambulatory Limitations: no limitations History of Present Illness HPI Narrative: Patient is a 46 year old assigned male at with no reported medical history presenting to the emergency department today with left thumb pain. Patient states that a few weeks ago he was seen here for an injury to his left thumb and he has an appointment with the hand surgeon in 2 days. Patient states that the pain has just been unbearable and he would like something to help with that over these next 2 days while he waits for the surgeon. Patient states that the thumb has been the same color and has not improved or worsened. Patient states that he still has movement and feeling in the thumb. Patient denies any dizziness, lightheadedness, abdominal pain, nausea, vomiting, fever, chills, blurry vision, double vision, loss of vision, chest pain, difficulty breathing, shortness of breath, back pain, night sweats, pain with urination, increased urinary frequency, increased urinary urgency, blood in his urine or stool, s yncope or a near syncopal episode, bowel incontinence, bladder incontinence, bowel retention, bladder retention, or any other complaints at this time. MD Complaint: extremity pain Onset (ago): week(s) Pain Consistency: constant Location: left Severity scale (1-10): 6 Quality: aching Radiation: none Relieving factors: nothing Exacerbating factors: nothing Associated symptoms: denies other symptoms Related Data Previous Rx's Medication Instructions Recorded amoxicillin 875 mg-potassium 1 tab PO BID #14 tabs 04/15/21 clavulanate 125 mg tablet (Augmentin) ibuprofen 800 mg tablet 800 mg PO Q8H PRN pain #14 tabs 01/01/22 hydrocodone 5 mg-acetaminophen 325 1 tab PO DAILY PRN pain 2 days #7 01/13/22 mg tablet tabs Allergies Allergy/AdvReac Type Severity Reaction Status Date / Time morphine Allergy Intermediate Confusion Verified 01/01/22 10:56 Review of Systems Constitutional: Constitutional: Reports no additional constitutional complaints, Denies chills, Denies fever(s) and Denies night sweats Eyes: Eyes: Reports no additional eye complaints, Denies blurry vision, Denies change in vision, Denies diplopia, Denies eye discharge, Denies loss of vision and Denies eye pain ENT: Denies dizziness Cardiovascular: Cardiovascular: Reports no additional cardiovascular complaints, Denies chest pain, Denies lightheadedness, Denies Loss of Consciousness and Denies dyspnea Respiratory: Respiratory: Reports no additional respiratory complaints and Denies dyspnea Gastrointestinal: Gastrointestinal: Reports no additional gastrointestinal complaints, Denies abdominal pain, Denies melena, Denies hematochezia, Denies change in bowel habits and Denies change in stool character Genitourinary: Genitourinary: Reports no additional male genitourinary complaints, Denies hematuria, Denies oliguria, Denies difficulty urinating, Denies dysuria, Denies urinary frequency, Denies urinary hesitancy, Denies urinary incontinence and Denies urinary urgency Musculoskeletal: Musculoskeletal: Reports no additional musculoskeletal complaints, Denies numbness and Denies tingling Comments: left thumb pain Neurologic: Denies dizziness, Denies loss of vision, Denies numbness and Denies tingling Psychiatric: Psychiatric: Reports no additional psychiatric complaints Endocrine: Endocrine: Reports no additional endocrine complaints Hematologic/Lymphatic: Hematologic/Lymphatic: Reports no additional hematologic/lymphatic complaints Allergic/Immunologic: Allergic/Immunologic: Reports no additional allergic/im munologic complaints [facility] Past Medical History Attestation statement: The following information was validated with the patient. Source: old records reviewed Medical History No pertinent past medical history Surgical History No pertinent past surgical history Family History Family History Other No family history of coronary artery disease Social History Social History Alcohol intake: unknown Patient Tobacco Use Status: Current everyday Tobacco user Advance Directives: No Advance Directives Information Provided: No Physical Exam Vital Signs: Vital Signs: Last Vital Signs Temp 98.2 F 01/13/22 17:40 Pulse 85 01/13/22 17:40 Resp 18 01/13/22 17:40 BP 138/76 01/13/22 17:40 Pulse Ox 97 01/13/22 17:40 O2 Del Method 10/31/22 17:40 BMI result Body Mass Index 28.1 Const: General: cooperative, no acute distress, alert and awake Nutritional Appearance: well nourished Orientation/consciousness: patient oriented x3 Limitations: no limitations HEENT: Head: Yes normal to inspection and Yes atraumatic Ears: hearing grossly normal bilaterally and external ears normal General nose exam: Normal external nose present, no nasal discharge noted and no epistaxis Face and sinus: Yes normal facial exam, No abrasion and No laceration Mouth: Normal oral and palatal mucosa present, no drooling and no muffled voice Eyes: General: appearance normal, both eyes and all related structures Periorbital: periorbital findings normal Eyelids: Yes eyelids normal Conjunctivae: conjunctivae normal Pupils: Equal, round and reactive pupils present EOM: EOMs intact bilaterally Neck: Neck: Yes normal visual inspection, Yes full ROM and Yes no lymphadenopathy Chest: Chest palpation & inspection: normal inspection of the chest Resp: Effort & Inspection: normal respiratory effort and able to speak in complete sentences Auscultation: clear to auscultation bilaterally Cardio: Rate: regular rate Rhythm: regular rhythm GI: Inspection: Yes normal to inspection Neuro: General: patient oriented x3 and moves all extremities Cranial nerves: Yes Equal, round and reactive pupils present Cognition (Neuro): normal cognition Motor exam (neuro): 5/5 motor strength present throughout Sensory Exam: Normal double simultaneous stimulation for sensation Coord ination: [id number] test normal Extrem: Other: patient's left thumb is the same in appearance to his previously documented visit with pictures - patient's PMS is intact General: Yes full ROM and Yes capillary refill normal Psych: Appearance: grossly normal Mental Status: mental status grossly normal Affect: normal affect Attitude: cooperative Thought process: Normal thought process present Thought content: Normal thought content present Insight: Good insight present (Psych) MDM - Extremity (Nontraumatic) MDM Narrative Medical decision making narrative: Patient is a 46 year old assigned male at with no reported medical history presenting to the emergency department today with continued left thumb pain. Patient's physical exam showed intact PMS to the left upper extremity with the left thumb appearing the same as his previous ED visit for this issue. I explained my physical exam findings to the patient. I answered all questions asked by the patient. I stressed the importance of the patient taking his medication as prescribed. I stressed the importance of the patient following up with his primary care provider and the hand surgeon as scheduled. I stressed the importance of the patient returning to the emergency department immediately if his symptoms were to worsen or if he were to develop any dizziness, shortness of breath, difficulty breathing, chest pain, blurry vision, loss of vision, nausea, vomiting, abdominal pain, fever, chills, back pain, or any other complaints. Patient verbalized agreement and understanding with this treatment plan and discharge. Medical Records Attestation: I reviewed the patient's medical records. Discharge Plan Discharge Clinical Impression: Thumb pain Patient Disposition: Home, Self-Care Additional Instructions: Follow up with your primary care provider and an orthopedic provider. Return to the emergency department immediately if your symptoms worsen or if you develop any dizziness, shortness of breath, difficulty breathing, chest pain, blurry vision, loss of vision, nausea, vomiting, abdominal pain, fever, chills, back pain, or any other complaints. Prescriptions: New hydrocodone-acetaminophen 5-325 mg tablet 1 tab PO DAILY PRN (Reason: pain) 2 Days Qty: 7 0RF Rx Instructions: Partial Fill upon patient request. No Action amoxicillin-pot clavulanate [Augmentin] 875-125 mg tablet 1 tab PO BID Qty: 14 0RF ibuprofen 800 mg tablet 800 mg PO Q8H PRN (Reason: pain) Qty: 14 0RF Referrals: [facility] [Provider Group] (Follow up with the orthopedist as scheduled. ) Interventions: ED Discharge Assessment Last Done: 01/13/22 22:01 Discharge Date/Time: 01/13/22 22:02 Print Language: French
[2022-01-13] MEDS: HYDROcodone Bit/Acetam 5/325 TABLET 1 TAB PO (21:53)
== END 2022-01-13 22:02 | disposition home or self-care (01) ==
PROVIDERS: Emergency Provider Internal Medicine
DX: M79.645 Pain in left finger(s) (principal); Z79.899 Other long term (current) drug therapy
CPT/HCPCS: 99283